=== PATIENT | male | born 1980 | race Caucasian/White ===

== ENCOUNTER 2017-11-04 21:23 | Observation (INO) | payer OTHER ==
[~2017-11-04] VITALS: Ht 177.8 cm; Wt 130.6 kg
--- NOTE | 2017-11-04 22:31 | Diagnostic Imaging Report ---
EXAM: ANKLE 3+ VIEWS LEFT, AP, lateral and oblique INDICATION: Swelling and pain, no history of trauma. COMPARISON: None FINDINGS: BONES: No acute fractures. JOINTS: No malalignment. SOFT TISSUES: Soft tissue swelling of the ankle. IMPRESSION: No left ankle fracture, erosion or radiopaque foreign body. Signed by: Dr. Letty Llamas M.D. on 11/04/2017 10:27 PM
[2017-11-04 23:44] LABS: BASOPHILS % 0.2 % (0.0-1.0); EOSINOPHILS # (AUTO) 0.4 (0.0-0.4); EOSINOPHILS % 3.3 % (0.0-6.0); HEMATOCRIT 45.6 % (38.2-49.6); HEMOGLOBIN 15.1 g/dL (14.0-18.0); LYMPHOCYTES # (AUTO) 3.7 (1.0-3.2); LYMPHOCYTES % 32.8 % (18.0-39.1); MEAN CORPUSCULAR HEMOGLOBIN 29.4 pg (28-32); MEAN CORPUSCULAR HGB CONC 33.1 g/dL (31-35); MEAN CORPUSCULAR VOLUME 88.7 fL (81-99); MONOCYTES # (AUTO) 1.4 (0.2-0.8); MONOCYTES % 12.4 % (4.4-11.3); NEUTROPHILS # (AUTO) 5.7 (2.1-6.9); NEUTROPHILS % 50.9 % (38.7-80.0); PLATELET COUNT 300 x10e3/uL (140-360); RED BLOOD COUNT 5.14 x10e6/uL (4.3-5.7); RED CELL DISTRIBUTION WIDTH 12.4 % (11.7-14.4)
[2017-11-04 23:55] LABS: INR 0.94; PROTHROMBIN TIME 11.8 seconds (11.9-14.5)
[2017-11-04 23:56] LABS: PARTIAL THROMBOPLASTIN TIME 27.3 seconds (23.8-35.5)
[2017-11-05] VITALS (8 sets, daily range): BP systolic 102–142; BP diastolic 56–65
[2017-11-05 00:03] LABS: ALANINE AMINOTRANSFERASE 20 IU/L (0-55); ALBUMIN 3.7 g/dL (3.5-5.0); ALBUMIN/GLOBULIN RATIO 0.9 (0.8-2.0); ALKALINE PHOSPHATASE 79 IU/L (40-150); BLOOD UREA NITROGEN 12 mg/dL (7-26); BUN/CREATININE RATIO 13 (6-25); CALCIUM 10.1 mg/dL (8.4-10.2); CARBON DIOXIDE 25 mmol/L (22-29); CHLORIDE 104 mmol/L (98-107); CREATINE KINASE 50 IU/L (30-200); CREATININE, SERUM 0.94 mg/dL (0.72-1.25); EST GLOMERULAR FILTRATION RATE > 60 ML/MIN (60-); GLUCOSE 96 mg/dL (74-118); SODIUM 142 mmol/L (136-145)
[2017-11-05] MEDS: ENOXAPARIN SODIUM INJ 100 MG/ML SYR SC SCH ×3 (00:11→23:47)
--- NOTE | 2017-11-05 01:06 | Diagnostic Imaging Report ---
EXAM: CT CHEST W INDICATION: Left ankle swelling, diagnosed with blood clots in left lower extremity COMPARISON: None TECHNIQUE: Multidetector CT scanning of the chest was performed. Coronal and sagittal multiplanar reformations were obtained. Dose modulation, iterative reconstruction, and/or weight based adjustment of the mA/kV was utilized to reduce the radiation dose to as low as reasonably achievable. PE protocol performed. IV Contrast: 100 cc Isovue-370 CTDIvol has been reviewed. It is below the limits set by the Radiation Protocol Committee (RPC). FINDINGS: LUNGS AND AIRWAYS: The trachea and major bronchi are unremarkable. No consolidations or edema. PLEURA: No effusions or pneumothorax. HEART, MEDIASTINUM, VESSELS: The heart is within normal size limits. No evidence of right heart strain. No abnormal pericardial effusion. No thoracic aortic aneurysm. No mediastinal mass or lymphadenopathy. Small filling defects in subsegmental branches of the left lower lobe pulmonary arteries and right lower lobe pulmonary artery (series 401, images 74 on the left and 78 on the right.) Additional filling defect subsegmental branch of the posterior right upper lobe (series 2, image 50). UPPER ABDOMEN: Nonspecific 7 mm calcification in the inferior vena cava just above the level of the right renal vein. MUSCULOSKELETAL: No acute findings. IMPRESSION: Pulmonary emboli in subsegmental branches of the bilateral lower lobe pulmonary arteries and right upper lung. No evidence of a pulmonary infarct. Nonspecific 7 mm calcification in the inferior vena cava. This could represent calcification of an old thrombus. This could be further evaluated by CT or MR venogram of the abdomen and pelvis. Findings discussed with Dr. Sinha 11/05/2017 at 1255 hrs. Signed by: Dr. Letty Llamas M.D. on 11/05/2017 1:01 AM
[2017-11-05] MEDS ORDERED: LISINOPRIL10 MG PO (01:40)
[2017-11-05] MEDS: LORAZEPAM 0.5 MG TAB PO PRN ×2 (03:29→23:47)
[2017-11-05] MEDS ORDERED: IOPAMIDOL 370 MG/ML 200 ML INFUS..BTL INJ ONE (04:26)
[2017-11-05] MEDS ORDERED: SODIUM CHLORIDE 0.9% 50ML 50 ML ONE (04:26)
[2017-11-05 08:22] LABS: CREATINE KINASE 40 IU/L (30-200)
[2017-11-05] MEDS: ASPIRIN 325 MG TAB EC PO SCH (08:51)
[2017-11-05] MEDS: HYDROCODONE/APAP 10MG-325MG TAB PO PRN ×3 (10:33→23:48)
[2017-11-05 16:26] LABS: CREATINE KINASE 37 IU/L (30-200)
[2017-11-06 00:49] VITALS: BP 97/55
[2017-11-06 05:04] VITALS: BP 97/55
[2017-11-06] MEDS: HYDROCODONE/APAP 10MG-325MG TAB PO PRN ×2 (05:27→13:22)
[2017-11-06 06:16] LABS: ANION GAP 15.6 mmol/L (8-16); BLOOD UREA NITROGEN 13 mg/dL (7-26); BUN/CREATININE RATIO 16 (6-25); CALCIUM 9.5 mg/dL (8.4-10.2); CARBON DIOXIDE 24 mmol/L (22-29); CHLORIDE 104 mmol/L (98-107); CREATININE, SERUM 0.81 mg/dL (0.72-1.25); EST GLOMERULAR FILTRATION RATE > 60 ML/MIN (60-); GLUCOSE 97 mg/dL (74-118); POTASSIUM 4.6 mmol/L (3.5-5.1); SODIUM 139 mmol/L (136-145)
[2017-11-06 07:29] VITALS: BP 105/55
[2017-11-06] MEDS: ASPIRIN 325 MG TAB EC PO SCH (09:00)
[2017-11-06] MEDS: RIVAROXABAN 15 MG TABLET PO SCH ×2 (09:00→16:11)
[2017-11-06 10:42] VITALS: BP 105/55
[2017-11-06 11:33] VITALS: BP 104/53
[2017-11-06] MEDS ORDERED: TRAMADOL HCL100 MG PO (13:35)
[2017-11-06] MEDS ORDERED: XARELTO20 MG PO (13:36)
[2017-11-06 15:50] VITALS: BP 115/54
== END 2017-11-06 16:22 | disposition home or self-care (01) ==
LOC: ER 21:23 → INTOOBSV 11-05 01:33 → ERHOLD 11-05 01:33 → MED/SURG 11-05 02:15
PROVIDERS: ADMIT Internal Medicine; ATTEND Internal Medicine
DX: I82.4Z2 Acute embolism and thrombosis of unspecified deep veins of left distal lower extremity (principal); I26.99 Other pulmonary embolism without acute cor pulmonale; F17.210 Nicotine dependence, cigarettes, uncomplicated; I10 Essential (primary) hypertension
CPT/HCPCS: 36415 ×3; 71260; 73610; 80048; 80053; 82550 ×2; 82553 ×2; 84484 ×2; 85025; 85610; 85730; 93005; 93306; 93971; 99284; G0378 ×2; J1650; Q9967

== ENCOUNTER → 2017-12-26 | Outpatient (CLI) | payer OTHER ==
[~2017-12-26] MED LIST: LISINOPRIL10 MG PO; TRAMADOL HCL100 MG PO; XARELTO20 MG PO
== END ==
LOC: RAD 09:40
PROVIDERS: ATTEND Family Medicine
DX: Z86.718 Personal history of other venous thrombosis and embolism (principal)
CPT/HCPCS: 93971